=== PATIENT | male | born 1970 | race Two or more races ===

== ENCOUNTER 2016-12-26 16:42 | Emergency (ER) | payer OTHER ==
[2016-12-26] MEDS ORDERED: KETOROLAC TROMETHAMINE 15 MG/ML VIAL ONE (17:18)
[2016-12-26] MEDS ORDERED: DIPHENHYDRAMINE HCL 50 MG/1 ML VIAL ONE (17:18)
[2016-12-26] MEDS ORDERED: PROCHLORPERAZINE 5 MG/ML 2 ML VIAL ONE (17:18)
== END 2016-12-26 18:03 | disposition home or self-care (01) ==
LOC: ED 16:42
DX: G43.909 Migraine, unspecified, not intractable, without status migrainosus (principal); I10 Essential (primary) hypertension; E78.5 Hyperlipidemia, unspecified
CPT/HCPCS: 99282; 96375 ×2; 96374; 99283; J1200; J0780; J1885